=== PATIENT | male | born 1955 | race Caucasian/White ===

== ENCOUNTER 2017-12-11 10:28 | Day surgery (SDC) | payer BC ==
[2017-12-11] MEDS ORDERED: LIDOCAINE 2% MDV (20MG/ML) 20ML VIAL IV ONE (10:29)
[2017-12-11] MEDS ORDERED: MIDAZOLAM HCL 2MG/2ML VIAL IV ONE (10:29)
[2017-12-11] MEDS ORDERED: PROPOFOL 10 MG/ML VIAL IV ONE (10:29)
--- NOTE | 2017-12-12 10:00 | Operative Note ---
DATE OF SURGERY: 12/11/2017 OPERATION: COLONOSCOPY to the cecum with cold snare polypectomy x2 and electrocautery snare polypectomy x1 and biopsy and Endoclip placement. INDICATION: History of adenomatous polyps. The patient returns at this time after 3 years for surveillance of adenomatous polyps. ANESTHESIA: Intravenous sedation was administered by the department of anesthesiology and included Diprivan titrated to effect. PROCEDURE: Following informed consent from this alert individual including a discussion of the risks and benefits of the procedure and an opportunity for the patient to ask questions, the patient was in the left lateral decubitus position. A digital rectal examination was performed. No abnormalities were noted. Following this, the Olympus [id number] video colonoscope was inserted into the rectum without resistance. The rectal mucosa had a normal appearance with normal folds and distensibility. The colonoscope was advanced up through the colon to the level of the cecum with some slight difficulty. The bowel was somewhat redundant. There were a few diverticula noted along the way, particularly in the ascending colon. The cecum was defined by noting the appendiceal orifice and ileocecal valve. From the base of the cecum, the colonoscope was then withdrawn. In the ascending colon, there were 2 polyps noted. One was approximately 5-6 mm in size and was removed with cold snare polypectomy. The second larger polyp was 8 mm in size and removed with electrocautery snare polypectomy. The transverse colon was unremarkable. In the descending colon, there was a 5 mm polyp removed with cold snare polypectomy. There was also a focal area of edema with erythema which might have been related to endoscope trauma through that region. As mentioned above, the colon was somewhat tortuous, and abdominal pressure support was applied by the nursing staff to facilitate reaching the cecum. Nevertheless, because of the edematous-appearing mucosa, I did take biopsies from the site. It did bleed at one of the biopsy sites, and for this reason an Endoclip was placed with hemostasis noted. No other changes were appreciated. Retroflexion in the rectum was endoscopically unremarkable. The endoscope was straightened and removed. The patient tolerated the procedure well and was returned to the recovery area in stable condition. IMPRESSION: 1. Two ascending colon polyps measuring 5-6 mm in size and 8 mm in size removed with cold snare and electrocautery snare polypectomy, respectively. 2. A descending colon polyp measuring 5 mm in size removed with cold snare polypectomy. 3. Focal area of edema with erythema in the descending colon. Biopsies and Endoclip placed for bleeding, which stopped. 4. Diverticulosis. RECOMMENDATIONS: Further recommendations will be forthcoming pending results of biopsy obtained today. I did ask the patient to hold off on Plavix for the next 3 days. Followup will also be with Dr. Molina. As always, thank you for allowing me to participate in the care of your patient. CC: KELLEY MOLINA MD, FACP MTDD
== END 2017-12-11 13:16 | disposition home or self-care (01) ==
LOC: HOP 10:28
PROVIDERS: ATTEND Internal Medicine Gastroenterology
DX: Z12.11 Encounter for screening for malignant neoplasm of colon (principal); Z86.010 Personal history of colon polyps; D12.2 Benign neoplasm of ascending colon; D12.4 Benign neoplasm of descending colon; K57.30 Diverticulosis of large intestine without perforation or abscess without bleeding; R60.9 Edema, unspecified; L53.8 Other specified erythematous conditions